=== PATIENT | female | born 1990 | race Caucasian/White ===

== ENCOUNTER → 2016-07-13 | Outpatient (CLI) | payer OTHER ==
--- NOTE | 2016-07-13 20:44 | REP ---
Clinical: Anatomical evaluation. Comparison: None . Findings: Examination demonstrates a single live intrauterine in cephalic presentation. motion is identified by technologist. Placenta is noted anteriorly and grade one without evidence for placenta previa or abruption. Amniotic fluid volume is normal. Cervix measures 4.1 cm in length and appears closed. Nuchal cord cannot be excluded. Gestational age by LMP 33 weeks 5 days with YVONNE 08/26/2016 . Gestational age by current measurements 34 weeks 5-day with YVONNE 08/19/2016 . FHR equals 136 beats per minute. BPD 8.6 cm 34 weeks 4 days HC 31.4 cm 35 weeks 1 day AC 32.1 cm 36 weeks 0 days FL 6.6 cm 34 weeks 0 days HL 5.8 cm 33 weeks 3 days HC/AC ratio 0.98 Estimated weight 2636 grams ( 76th percentile). Amniotic fluid index equals 17.3 cm (8.2 - 24.7). Umbilical cord SD ratio equals 2.63. Limited anatomical assessment demonstrates normal cranium, cavum, facial features, lungs, diaphragm, stomach, three-vessel cord, kidneys/bladder. Incomplete evaluation of the cord plexus, posterior fossa, heart/ventricular outflow tracts, cord insertion, spine, and extremities noted. Impression: 1. Single live advanced gestation in cephalic presentation demonstrating appropriate interval growth. 2. While no gross abnormalities are identified, anatomical assessment is limited due to advanced age and positioning. 3. Nuchal cord cannot be excluded. Signed by Maikol Loera MD 07/13/2016 05:01 P
== END ==
LOC: M RAD 12:42
PROVIDERS: ATTEND Obstetrics & Gynecology
DX: Z36 Encounter for antenatal screening of mother (principal); Z3A.33 33 weeks gestation of pregnancy

== ENCOUNTER 2016-08-22 06:25 | Inpatient (IN) | payer OTHER ==
[2016-08-22] VITALS (39 sets, daily range): BP systolic 115–187; BP diastolic 57–103
[~2016-08-22] VITALS: Ht 165.1 cm; Wt 130.0 kg
[2016-08-22] MEDS ORDERED: ACYC1CAP8 PO (06:58)
[2016-08-22] MEDS ORDERED: COLA100C3 PO (06:58)
[2016-08-22] MEDS ORDERED: FISH100049 PO (06:58)
[2016-08-22] MEDS ORDERED: FERR325T3 PO (06:58)
[2016-08-22] MEDS ORDERED: PRENTAB9 PO (06:58)
[2016-08-22] MEDS ORDERED: LR 1,000 ML IV SCH ×2 (09:28)
[2016-08-22] MEDS ORDERED: OXYTOCIN DRIP 30 UNITS in APPROPRIATE DILUENT 1 EA IV SCH ×2 (09:30→17:58)
--- NOTE | 2016-08-22 09:47 | HPEPDOC ---
Obstetrical History & Physical General Date of Admission Aug 22, 2016 at 06:25 History of Present Illness 26 y/o at 39+3 with h/o GHTN (BP's mostly nl this ), baseline proteinuria of 315 mg, and morbid obesity here for IOL. YVONNE by 13 wk US and LMP. No LOF/VB/reg ctx's. Pos FM. Baby #1 with herpes but she has never had a genitak outbreak. AB shows exposure, has been taking Valtrex since 36 weeks. She transferred to our care at 30 wks from [place]. Information Provided By: Patient Dating Final EDC: Aug 26, 2016 Final EDC by: LMP, 1st trimester (US) Past Medical History Past Obstetrical History : Past Obstetrical History: Multigravida (2012 IOL for GHTN- 7 lb 9 oz, Second 8 lb 1 oz 2012) Type of Delivery: Spontaneous Vaginal Del. Complications: No ADVISORY INTERN History: No pertinent history Past Medical History Medical History obesity H/O GHTN Surgical History: Denies/None Family History Significant Family History: No pertinent family hx Social History Marital Status: Single Family situation: Spouse/partner home Psychosocial History: No pertinent psych hx * Smoker: non-smoker Alcohol: Denies Drugs: denies Imunizations Tdap status: current Influenza Status: declined Allergies Coded Allergies: No Known Allergies (Unverified , 08/22/16) Medications Scheduled (Acyclovir) 200 Mg Cap, 200 MG PO DAILY Docusate Sodium (Colace) 100 Mg Cap, 100 MG PO BID Ferrous Sulfate (Ferrous Sulfate) 325 Mg Tab, 325 MG PO BID Fish Oil (Fish Oil 1000 mg) 1 Cap Cap, 1 CAP PO DAILY Multivitamins/ ( 27-0.8 mg) 1 Tab Tab, 1 TAB PO DAILY Physical Examination Physical Examination GENERAL: Alert and oriented times three. ABDOMEN: Gravid and non-tender to touch. FETUS: (VTX) by sterile vaginal examination SVE: 3/60/-3/vtx not well applied, membranes swept EXTREMITIES: No edema. Vital Signs/I&O Vital Signs Date Time Temp Pulse Resp B/P (MAP) Pulse Ox O2 Delivery O2 Flow Rate FiO2 08/22/16 07:01 97.7 100 18 140/88 (105) Laboratory Data 24H LABS Laboratory Tests 2 08/22/16 07:23: Serology Scanned Report Hepatitis B Testing Urine Culture: No Growth Pertinent Laboratoy Data Blood Type: O+ RBC Antibody Screen: Negative HIV: Negative Hepatitis B: Negative Hepatitis C: Unknown Rapid Plasma Reagin: Nonreactive Rubella: Nonreactive (nonimmune, will need MMR prior to d/c) Varicella: Immune Chlamydia/Gonorrhea: Negative Group B Streptococcus: Negative Quad Screen Test: Declined Cystic Fibrosis: Negative Glucose Tolerance Test: 167 (nl 3-hr GTT) Anatomy Ultrasound Placenta Location: Anterior Normal Anatomy: Yes (limited due to advanced EGA, obesity and positioning) Placenta Previa: No Vaginal Examination Dilation: 3 cm Effacement: 60-70% Station: -3 Cervical Consistency: Medium Cervical Position: Middle Presentation: Cephalic presentation Assessment Variability: Moderate Accelerations: Positive Decelerations: None Tocometer Frequency: irregular Assessment/Plan Assessment IOL at 39+3 for h/o GHTN, obesity, proteinuria. Favorable Cx. Plan Admit and orient. [employer] Insurance Claim Examiner and consent. Diet: clr Group B Streptococcus (GBS) negative Labs and intravenous (IV) per unit protocol. Counseled on Pitocin and induction of labor (IOL). Lactated Ringers (LR): Bolus 1000 mL, then at 125 mL/hr. Anticipate normal spontaneous delivery () C-S as appropriate. Epidural on demand. MMR prior to d/c, told RN on L&D, she will pass this off in report to the PP nurses. Sessions MD GARCES,PAVAN Burris MD Aug 22, 2016 09:46
[2016-08-22 10:20] LABS: MEAN CORPUSCULAR HEMOGLOBIN 27.8 pg (27.0-33.0); MEAN CORPUSCULAR HGB CONC 33.2 g/dl (32.0-36.5); MEAN CORPUSCULAR VOLUME 83.8 fl (80.0-96.0); RED CELL DISTRIBUTION WIDTH 14.8 % (11.5-14.5); WHITE BLOOD COUNT 11.5 K/mm3 (4.0-10.0)
[2016-08-22] MEDS ORDERED: FENTANYL 2MCG/ML ROPIVACAINE 0.2% IN 0.9% NACL 200ML IVBAG As Ordered ONE (11:52)
--- NOTE | 2016-08-22 14:10 | IPNPDOC ---
Text Note Date of Service The patient was seen on 08/22/16. NOTE NST Cat 1, had some post-epidural decels but these fixed easily by pos change, etc. reg ctx's on pitocin Cx /-2/vtx now well applied. a/p: Dong well. Recheck in ~4 hrs, sooner prn VS,Fishbone, I+O VS, Fishbone, I+O Laboratory Tests 08/22/16 10:01 Red Blood Count 3.71 L, Mean Corpuscular Volume 83.8, Mean Corpuscular Hemoglobin 27.8, Mean Corpuscular Hemoglobin Concent 33.2, Red Cell Distribution Width 14.8 H Vital Signs Date Time Temp Pulse Resp B/P (MAP) Pulse Ox O2 Delivery O2 Flow Rate FiO2 08/22/16 07:01 97.7 100 18 140/88 (105) SESSIONS,PAVAN Burris MD Aug 22, 2016 14:10
[2016-08-22] MEDS ORDERED: EPIDURAL COMMENT XX SCH (16:30)
[2016-08-22] MEDS ORDERED: ePHEDrine SULFATE 25 MG/5 ML(5MG/ML) SYRINGE IV PRN (16:30)
[2016-08-22] MEDS ORDERED: NALOXONE INJ 0.4 MG/1 ML VIAL (J2310) IV PRN (16:30)
[2016-08-22] MEDS ORDERED: REFRIGERATOR IV KEYS XX PRN (16:30)
[2016-08-22] MEDS ORDERED: ONDANSETRON 4MG/2ML VIAL (J2405) IV PRN (16:30)
[2016-08-22] MEDS ORDERED: FENTANYL/ROPIVACAINE/NACL BAG 200 ML EPIDURAL SCH (16:30)
[2016-08-22] MEDS ORDERED: diphenhydrAMINE INJ 50MG/ML VIAL (J1200) IV PRN (16:30)
[2016-08-22] MEDS ORDERED: EPIDURAL/PCA KEYS XX PRN (16:30)
[2016-08-22] MEDS ORDERED: LACTATED RINGER'S 1000 ML IV PRN (16:30)
[2016-08-22] MEDS ORDERED: MEASLES,MUMPS,RUBELLA VACCINE INJ (MMR-II) (90707) SC SCH (18:00)
[2016-08-22] MEDS ORDERED: DIBUCAINE 1% OINTMENT 30GM TOP PRN (18:00)
[2016-08-22] MEDS ORDERED: IBUPROFEN 800 MG TAB PO PRN (18:00)
[2016-08-22] MEDS ORDERED: RHOGAM 300 MCG (1500 IU) INJ (J2790) IM SCH (18:00)
[2016-08-22] MEDS ORDERED: METOCLOPRAMIDE INJ 10MG/2ML VIAL (J2765) IV PRN (18:00)
[2016-08-22] MEDS ORDERED: ACETAMINOPHEN TAB 650MG DOSE (2X325MG) PO PRN (18:00)
--- NOTE | 2016-08-22 18:02 | DNPDOC ---
[facility] Delivery Note Delivery Note DATE OF DELIVERY: Aug 22, 2016 at 06:25 PREDELIVERY DIAGNOSIS: 39 3/7 weeks' gestation and labor. POST DELIVERY DIAGNOSIS: Delivered. PROCEDURE: Spontaneous vaginal delivery RADIO ANNOUNCER: Dr. Garces ANESTHESIA: Epidural ESTIMATED BLOOD LOSS: 200 mL. FINDINGS: 9pound 0ounce maleinfant, Score 8/9 DELIVERY SUMMARY: Only pushed a fwe sets ctx's, good effort. No delay of the vtx or either shoulder. Ant shoulder left. Good tone and cry, to abd. Placenta intact with slight traction and fundal massage. Pit going. Fundus firm. 1 st degr lac repaired with 3-0 vicryl. GFood cosmesis/hemostasis. Sessions MD GARCES,PAVAN Burris MD Aug 22, 2016 18:02
[2016-08-22] MEDS: DOCUSATE SODIUM 100 MG CAP PO SCH (21:00)
[2016-08-23 06:00] VITALS: BP 121/59
--- NOTE | 2016-08-23 07:22 | IPNPDOC ---
Text Note Date of Service The patient was seen on 08/23/16. NOTE PPD1 prog note States feeling well, no complaints. No heavy VB. Pain controlled. Voiding, ambulatory. Bonding well and breast feeding well. VSSAF CTAB RRR Ut at U-2, firm Ext no CCE a/p: Doing well. d/c likely tomorrow AM. Sessions Reyes SANTIAGO, I+O VSReyes I+O Laboratory Tests 08/22/16 10:01 Red Blood Count 3.71 L, Mean Corpuscular Volume 83.8, Mean Corpuscular Hemoglobin 27.8, Mean Corpuscular Hemoglobin Concent 33.2, Red Cell Distribution Width 14.8 H Vital Signs Date Time Temp Pulse Resp B/P (MAP) Pulse Ox O2 Delivery O2 Flow Rate FiO2 08/23/16 06:00 97.7 86 20 121/59 (79) 98 Room Air I&O- Last 24 Hours up to 6 AM 08/23/16 06:00 Intake Total 2059 ml Output Total 700 ml Balance 1359 ml PAVAN GARCES MD Aug 23, 2016 07:22
[2016-08-23] MEDS: PRENATAL VITAMIN TAB PO SCH (08:20)
[2016-08-23] MEDS: DOCUSATE SODIUM 100 MG CAP PO SCH ×2 (08:20→20:24)
[2016-08-23 17:36] VITALS: BP 135/62
[2016-08-24 05:57] VITALS: BP 137/73
--- NOTE | 2016-08-24 07:55 | IPNPDOC ---
Text Note Date of Service The patient was seen on 08/24/16. NOTE Frances is a 26y/o [id number] s/p uncomplicated on 08/22/16 at 39w3d after undergoing uncomplicated IOL for h/o GHTN (BP's mostly normal in ) and morbid obesity. Had a 1mll. This morning she states she is doing well, no issues. No f/c/n/v/SOB/CP. Lochia very minimal. without issue. No problems with voiding, ambulation or eating. Vitals wnl, afebrile General: WDWN, NAD Abdomen: soft, uterine fundus firm at u-2cm Extremities: no pain with palpation of calves Assessment: Frances is a 26y/o [id number] s/p uncomplicated on 08/22/16 at 39w3d after undergoing uncomplicated IOL for h/o GHTN (BP's mostly normal in ) and morbid obesity. Vitals wnl, exam benign. No e/o infection and hemodynamically stable. Plan: -Discharge to home today with routine follow-up in 6 weeks -Vasectomy for contraception -Home meds: motrin, tylenol, colace, lanolin -return precautions discussed Dr. Bonita Mooney MD [place] VS,Reyes, I+O VSReyes, I+O Vital Signs Date Time Temp Pulse Resp B/P (MAP) Pulse Ox O2 Delivery O2 Flow Rate FiO2 08/24/16 05:57 97.6 77 16 137/73 (94) 97 Room Air BONITA MOONEY MD Aug 24, 2016 07:55
[2016-08-24] MEDS ORDERED: IBUP-1114 PO (08:37)
[2016-08-24] MEDS ORDERED: ACET50TA PO (08:37)
[2016-08-24] MEDS: DOCUSATE SODIUM 100 MG CAP PO SCH (08:48)
[2016-08-24] MEDS: PRENATAL VITAMIN TAB PO SCH (08:48)
== END 2016-08-24 12:30 | disposition home or self-care (01) | DRG 774 ==
LOC: M LDI 06:25 → M OBS 20:20
PROVIDERS: ADMIT Student in an Organized Health Care Education/Training Program; ATTEND Student in an Organized Health Care Education/Training Program
PROC: 10E0XZZ Delivery of Products of Conception, External Approach (ICD-10-PCS; principal; 2016-08-22)
PROC: 0HQ9XZZ Repair Perineum Skin, External Approach (ICD-10-PCS; 2016-08-22)
PROC: 3E033VJ Introduction of Other Hormone into Peripheral Vein, Percutaneous Approach (ICD-10-PCS; 2016-08-22)
DX: O99.214 Obesity complicating childbirth (principal); O98.52 Other viral diseases complicating childbirth; Z68.42 Body mass index [BMI] 45.0-49.9, adult; E66.01 Morbid (severe) obesity due to excess calories; Z37.0 Single live birth; Z3A.39 39 weeks gestation of pregnancy; B00.9 Herpesviral infection, unspecified; Z79.899 Other long term (current) drug therapy; O70.0 First degree perineal laceration during delivery